=== PATIENT | female | born 1955 | race Caucasian/White ===

== ENCOUNTER 2017-07-04 03:06 | Inpatient (IN) | payer OTHER ==
[~2017-07-04] VITALS: Ht 165.1 cm; Wt 145.9 kg
[2017-07-04] MEDS ORDERED: HYDROmorphone 1 MG/ML, 1ML IVPush PRN (03:30)
[2017-07-04] MEDS ORDERED: ONDANSETRON 2MG/ML, 2ML IVPush ONE (03:30)
[2017-07-04] MEDS ORDERED: HYDROmorphone 1 MG/ML, 1ML ONE (03:33)
[2017-07-04] MEDS ORDERED: ONDANSETRON 2MG/ML, 2ML ONE (03:33)
[2017-07-04] MEDS ORDERED: PLEASE ENTER ALLERGIES MC SCH ×2 (04:00)
[2017-07-04] MEDS ORDERED: ATOR-2 PO (04:33)
[2017-07-04] MEDS ORDERED: MISO200T PO (04:35)
[2017-07-04] MEDS ORDERED: DOXE150C PO (04:36)
[2017-07-04] MEDS ORDERED: DOCU250C9 PO (04:39)
[2017-07-04] MEDS ORDERED: BISA-49 PO (04:40)
[2017-07-04] MEDS ORDERED: INSU100C SQ-INSULIN (04:41)
[2017-07-04] MEDS ORDERED: PREG200C PO (04:41)
[2017-07-04] MEDS ORDERED: INSU100V13 INJ (04:43)
[2017-07-04] MEDS ORDERED: GLIM2TAB PO (04:44)
[2017-07-04] MEDS ORDERED: ALBU18HF PO (04:45)
[2017-07-04] MEDS ORDERED: TRAM50TA2 PO (04:46)
[2017-07-04] MEDS ORDERED: HYDR-3245 PO (04:47)
[2017-07-04] MEDS ORDERED: OMEP-110 PO (04:47)
[2017-07-04] MEDS ORDERED: FAMO-79 PO (04:48)
[2017-07-04] MEDS ORDERED: TIZA4CAP2 PO (04:49)
[2017-07-04] MEDS ORDERED: MONT10TA6 PO (04:50)
[2017-07-04] MEDS ORDERED: AMLO2.5T2 PO (04:51)
[2017-07-04] MEDS ORDERED: HYDR200T PO (04:51)
[2017-07-04] MEDS ORDERED: BENA20TA2 PO (04:52)
[2017-07-04] MEDS ORDERED: MONT10TA9 PO (04:53)
[2017-07-04] MEDS ORDERED: HYDROmorphone 2 MG/ML, 1ML IVPush PRN (05:00)
[2017-07-04] MEDS ORDERED: ONDANSETRON 2MG/ML, 2ML IVPush PRN (05:00)
[2017-07-04] MEDS ORDERED: hydrALAzine 20 MG/ML, 1ML IVPush PRN (05:00)
[2017-07-04] MEDS ORDERED: ENOXAPARIN 40 MG/0.4 ML SQ SCH (05:00)
[2017-07-04] MEDS ORDERED: LORazepam 2 MG/ML, 1ML IVPush PRN (05:00)
[2017-07-04] MEDS ORDERED: MISOPROSTOL 100 MCG TABLET PO SCH (06:00)
[2017-07-04] MEDS ORDERED: ALBUTEROL/IPRATROPIUM 2.5MG/0.5MG, 3 ML NEB ONE (06:00)
[2017-07-04 06:30] VITALS: BP 147/78
[2017-07-04 07:23] VITALS: BP 122/71
[2017-07-04] MEDS: MONTELUKAST MC SCH ×3 (07:30→22:12)
[2017-07-04] MEDS: MISOPROSTOL MC SCH ×3 (07:30→22:12)
[2017-07-04] MEDS ORDERED: ALBUTEROL/IPRATROPIUM 2.5MG/0.5MG, 3 ML ONE (07:46)
[2017-07-04] MEDS: INSULIN ASPART 100 UNITS/ML, PEN SQ-INSULIN SCH ×4 (08:00→20:57)
[2017-07-04] MEDS ORDERED: IBUPROFEN 200 MG TABLET PO PRN (08:00)
[2017-07-04] MEDS ORDERED: BENAZEPRIL 20 MG TABLET PO SCH (09:00)
[2017-07-04] MEDS: ALBUTEROL/IPRATROPIUM 2.5MG/0.5MG, 3 ML NPPB SCH ×3 (09:00→19:34)
[2017-07-04] MEDS ORDERED: MONTELUKAST 10 MG TABLET PO SCH (09:00)
[2017-07-04] MEDS: TIZANIDINE 4MG TABLET PO SCH ×3 (09:43→20:51)
[2017-07-04] MEDS: BENAZEPRIL 20 MG TABLET PO SCH ×2 (09:43→20:52)
[2017-07-04] MEDS: GLIMEPIRIDE 4 MG TABLET PO SCH (09:44)
[2017-07-04] MEDS: METOCLOPRAMIDE 10MG TABLET PO SCH ×4 (09:45→20:54)
[2017-07-04] MEDS: FAMOTIDINE 20 MG TABLET PO SCH ×2 (09:46→20:54)
[2017-07-04] MEDS: OMEPRAZOLE 20 MG CAPSULE.DR PO SCH ×2 (09:46→20:50)
[2017-07-04] MEDS: AMLODIPINE 2.5 MG TABLET PO SCH (09:46)
[2017-07-04] MEDS ORDERED: DIPH25CA61 PO (09:51)
[2017-07-04] MEDS: HYDROXYCHLOROQUINE 200 MG TABLET PO SCH ×2 (11:43→20:52)
[2017-07-04] MEDS: PREGABALIN 200 MG CAPSULE PO SCH ×2 (11:43→20:50)
[2017-07-04] MEDS: MISOPROSTOL 200 MCG TABLET PO SCH ×3 (11:43→20:51)
[2017-07-04] MEDS: INSULIN DETEMIR 100 UNITS/ML, PEN SQ-INSULIN SCH ×2 (11:44→21:00)
[2017-07-04 13:03] VITALS: BP 129/75
[2017-07-04] MEDS ORDERED: ACETAMINOPHEN 500 MG TABLET PO PRN (14:00)
[2017-07-04] MEDS: GUAIFENESIN 100 MG/5 ML, 5ML UDC PO PRN ×2 (16:33→20:54)
[2017-07-04 19:15] VITALS: BP 116/72
[2017-07-04] MEDS: BISACODYL 5 MG EC TABLET PO SCH (20:52)
[2017-07-04] MEDS: ATORVASTATIN 20 MG TABLET PO SCH (20:52)
[2017-07-04] MEDS: DOXEPIN 25 MG CAPSULE PO SCH (21:55)
[2017-07-05 02:30] VITALS: BP 118/73
[2017-07-05] MEDS: MISOPROSTOL 200 MCG TABLET PO SCH ×4 (05:48→20:23)
[2017-07-05 05:54] LABS: HEMATOCRIT 31.6 % (34.6-47.8); HEMOGLOBIN 10.6 g/dL (11.7-16.4); WHITE BLOOD COUNT 2.6 x10^3/uL (3.4-10)
[2017-07-05 06:07] LABS: BLOOD UREA NITROGEN 27 mg/dL (7-18)
[2017-07-05] MEDS: INSULIN ASPART 100 UNITS/ML, PEN SQ-INSULIN SCH ×4 (07:00→20:23)
[2017-07-05] MEDS: METOCLOPRAMIDE 10MG TABLET PO SCH ×4 (07:00→20:13)
[2017-07-05 07:28] VITALS: BP 121/76
[2017-07-05] MEDS: MONTELUKAST MC SCH ×3 (07:30→21:45)
[2017-07-05] MEDS: MISOPROSTOL MC SCH ×3 (07:30→21:45)
[2017-07-05] MEDS ORDERED: GLUCAGON 1 MG IM PRN (08:00)
[2017-07-05] MEDS ORDERED: DEXTROSE 4 GM TAB.CHEW PO PRN (08:00)
[2017-07-05] MEDS ORDERED: DEXTROSE 50%, 50ML SYRINGE IVPush PRN (08:00)
[2017-07-05] MEDS: HEPARIN 5,000 UNITS/ML, 1ML SQ SCH ×2 (08:26→16:43)
[2017-07-05] MEDS: BISACODYL 5 MG EC TABLET PO SCH ×2 (08:26→20:23)
[2017-07-05] MEDS: GLIMEPIRIDE 4 MG TABLET PO SCH (08:26)
[2017-07-05] MEDS: SODIUM CHLORIDE FLUSH 10ML SYR IVF SCH ×2 (08:26→20:24)
[2017-07-05] MEDS: OMEPRAZOLE 20 MG CAPSULE.DR PO SCH ×2 (08:27→20:21)
[2017-07-05] MEDS: PREGABALIN 200 MG CAPSULE PO SCH ×2 (08:27→20:20)
[2017-07-05] MEDS: BENAZEPRIL 20 MG TABLET PO SCH ×2 (08:27→20:22)
[2017-07-05] MEDS: HYDROXYCHLOROQUINE 200 MG TABLET PO SCH ×2 (08:27→20:23)
[2017-07-05] MEDS: AMLODIPINE 2.5 MG TABLET PO SCH (08:27)
[2017-07-05] MEDS: TIZANIDINE 4MG TABLET PO SCH ×3 (08:28→20:22)
[2017-07-05] MEDS: INSULIN DETEMIR 100 UNITS/ML, PEN SQ-INSULIN SCH ×2 (08:28→20:43)
[2017-07-05] MEDS: MONTELUKAST 10 MG TABLET PO SCH (08:28)
[2017-07-05] MEDS: ALBUTEROL/IPRATROPIUM 2.5MG/0.5MG, 3 ML NPPB SCH ×3 (09:00→19:59)
[2017-07-05] MEDS ORDERED: AZTREONAM 1 GM in SODIUM CHLORIDE 0.9% 50 ML IV SCH (10:30)
[2017-07-05] MEDS: SODIUM CHLORIDE 0.9% 1,000 ML IV SCH ×2 (10:59→18:58)
[2017-07-05] MEDS ORDERED: INSULIN ASPART 100 UNITS/ML, PEN SQ-INSULIN SCH (11:00)
[2017-07-05 12:00] LABS: RAPID INFLUENZA A POSITIVE (Negative)
[2017-07-05 12:01] LABS: RAPID INFLUENZA B Negative (Negative)
[2017-07-05] MEDS: AZITHROMYCIN 500 MG in SODIUM CHLORIDE 0.9% 250 ML IV SCH (13:55)
[2017-07-05 14:32] VITALS: BP 124/76
[2017-07-05 18:33] VITALS: BP 118/76
[2017-07-05] MEDS: AZTREONAM IV SCH (18:55)
[2017-07-05] MEDS: DEXTROSE 5% IV SCH (18:55)
[2017-07-05] MEDS: OSELTAMIVIR 75 MG CAPSULE PO SCH (20:20)
[2017-07-05] MEDS: DOXEPIN 25 MG CAPSULE PO SCH (20:21)
[2017-07-05] MEDS: ATORVASTATIN 20 MG TABLET PO SCH (20:21)
[2017-07-05] MEDS: GUAIFENESIN ER 600 MG TABLET PO SCH (20:22)
[2017-07-06] MEDS: AZTREONAM IV SCH ×3 (02:37→20:11)
[2017-07-06] MEDS: DEXTROSE 5% IV SCH ×3 (02:37→20:11)
[2017-07-06 02:41] VITALS: BP 102/65
[2017-07-06] MEDS: HEPARIN 5,000 UNITS/ML, 1ML SQ SCH ×3 (05:13→20:16)
[2017-07-06] MEDS: MISOPROSTOL 200 MCG TABLET PO SCH ×4 (05:13→20:12)
[2017-07-06 05:52] LABS: HEMATOCRIT 32.2 % (34.6-47.8); HEMOGLOBIN 10.8 g/dL (11.7-16.4)
[2017-07-06 06:00] LABS: BLOOD UREA NITROGEN 28 mg/dL (7-18)
[2017-07-06 06:04] LABS: ASPARTATE AMINO TRANSFERASE 37 U/L (15-37)
[2017-07-06] MEDS: INSULIN ASPART 100 UNITS/ML, PEN SQ-INSULIN SCH ×4 (07:00→22:18)
[2017-07-06] MEDS: METOCLOPRAMIDE 10MG TABLET PO SCH ×4 (07:00→20:15)
[2017-07-06] MEDS: MONTELUKAST MC SCH ×3 (07:30→23:30)
[2017-07-06] MEDS: MISOPROSTOL MC SCH ×3 (07:30→23:30)
[2017-07-06 08:05] VITALS: BP 117/68
[2017-07-06] MEDS: SODIUM CHLORIDE FLUSH 10ML SYR IVF SCH ×2 (09:00→20:12)
[2017-07-06] MEDS: SODIUM CHLORIDE 0.9% 1,000 ML IV SCH ×2 (09:10→20:11)
[2017-07-06] MEDS: OMEPRAZOLE 20 MG CAPSULE.DR PO SCH ×2 (09:11→20:15)
[2017-07-06] MEDS: TIZANIDINE 4MG TABLET PO SCH ×3 (09:11→20:16)
[2017-07-06] MEDS: GUAIFENESIN ER 600 MG TABLET PO SCH ×2 (09:11→20:12)
[2017-07-06] MEDS: AMLODIPINE 2.5 MG TABLET PO SCH (09:11)
[2017-07-06] MEDS: BENAZEPRIL 20 MG TABLET PO SCH ×2 (09:11→20:14)
[2017-07-06] MEDS: HYDROXYCHLOROQUINE 200 MG TABLET PO SCH ×2 (09:11→20:15)
[2017-07-06] MEDS: OSELTAMIVIR 75 MG CAPSULE PO SCH ×2 (09:11→20:16)
[2017-07-06] MEDS: MONTELUKAST 10 MG TABLET PO SCH (09:11)
[2017-07-06] MEDS: PREGABALIN 200 MG CAPSULE PO SCH ×2 (09:11→20:15)
[2017-07-06] MEDS: INSULIN DETEMIR 100 UNITS/ML, PEN SQ-INSULIN SCH ×2 (09:13→22:19)
[2017-07-06] MEDS: ALBUTEROL/IPRATROPIUM 2.5MG/0.5MG, 3 ML NPPB SCH ×3 (10:06→21:00)
[2017-07-06] MEDS: AZITHROMYCIN 500 MG in SODIUM CHLORIDE 0.9% 250 ML IV SCH (12:39)
[2017-07-06 13:45] VITALS: BP 90/58
[2017-07-06 17:32] VITALS: BP 93/41
[2017-07-06] MEDS: ATORVASTATIN 20 MG TABLET PO SCH (20:12)
[2017-07-06] MEDS: DOXEPIN 25 MG CAPSULE PO SCH (20:16)
[2017-07-06 21:00] VITALS: BP 93/59
[2017-07-06] MEDS: CALCIUM CARBONATE 500 MG TAB.CHEW PO PRN (23:00)
[2017-07-07 02:31] VITALS: BP 97/51
[2017-07-07] MEDS: DEXTROSE 5% IV SCH ×3 (03:50→21:06)
[2017-07-07] MEDS: AZTREONAM IV SCH ×3 (03:50→21:06)
[2017-07-07 05:29] LABS: HEMATOCRIT 30.7 % (34.6-47.8); HEMOGLOBIN 10.3 g/dL (11.7-16.4); WHITE BLOOD COUNT 2.8 x10^3/uL (3.4-10)
[2017-07-07 05:36] LABS: BLOOD UREA NITROGEN 28 mg/dL (7-18)
[2017-07-07 06:08] LABS: DIFF TOTAL CELLS COUNTED 100 CELL DIFF
[2017-07-07 06:11] LABS: VERIFY COUNTS? YES
[2017-07-07 06:12] LABS: ANISOCYTOSIS 1+; MICROCYTOSIS 1+; OVALOCYTES 1+
[2017-07-07 06:13] LABS: POLYCHROMASIA 1+
[2017-07-07] MEDS: MISOPROSTOL 200 MCG TABLET PO SCH ×4 (06:15→21:14)
[2017-07-07] MEDS: HEPARIN 5,000 UNITS/ML, 1ML SQ SCH ×2 (06:15→17:39)
[2017-07-07] MEDS: METOCLOPRAMIDE 10MG TABLET PO SCH ×2 (07:00→11:00)
[2017-07-07] MEDS: MONTELUKAST MC SCH (07:30)
[2017-07-07] MEDS: MISOPROSTOL MC SCH (07:30)
[2017-07-07 08:35] VITALS: BP 118/70
[2017-07-07] MEDS: GUAIFENESIN ER 600 MG TABLET PO SCH ×2 (08:40→21:14)
[2017-07-07] MEDS: OSELTAMIVIR 75 MG CAPSULE PO SCH ×2 (08:40→21:14)
[2017-07-07] MEDS: BISACODYL 5 MG EC TABLET PO SCH (08:40)
[2017-07-07] MEDS: BENAZEPRIL 20 MG TABLET PO SCH ×2 (08:41→21:15)
[2017-07-07] MEDS: PREGABALIN 200 MG CAPSULE PO SCH ×2 (08:41→21:15)
[2017-07-07] MEDS: AMLODIPINE 2.5 MG TABLET PO SCH (08:41)
[2017-07-07] MEDS: OMEPRAZOLE 20 MG CAPSULE.DR PO SCH ×2 (08:41→21:15)
[2017-07-07] MEDS: HYDROXYCHLOROQUINE 200 MG TABLET PO SCH ×2 (08:42→21:14)
[2017-07-07] MEDS: MONTELUKAST 10 MG TABLET PO SCH (08:42)
[2017-07-07] MEDS: TIZANIDINE 4MG TABLET PO SCH ×3 (08:42→21:16)
[2017-07-07] MEDS: SODIUM CHLORIDE FLUSH 10ML SYR IVF SCH ×2 (08:43→21:06)
[2017-07-07] MEDS: INSULIN ASPART 100 UNITS/ML, PEN SQ-INSULIN SCH ×4 (08:43→21:04)
[2017-07-07] MEDS: AZITHROMYCIN 500 MG in SODIUM CHLORIDE 0.9% 250 ML IV SCH (08:55)
[2017-07-07] MEDS: ALBUTEROL/IPRATROPIUM 2.5MG/0.5MG, 3 ML NPPB SCH ×3 (09:31→20:42)
[2017-07-07] MEDS: KETOROLAC 30 MG/1 ML IVPush PRN (10:05)
[2017-07-07] MEDS: INSULIN DETEMIR 100 UNITS/ML, PEN SQ-INSULIN SCH ×2 (10:06→21:04)
[2017-07-07 14:24] VITALS: BP 101/65
[2017-07-07 18:35] VITALS: BP 167/88
[2017-07-07] MEDS: DOXEPIN 25 MG CAPSULE PO SCH (21:16)
[2017-07-07] MEDS: ATORVASTATIN 20 MG TABLET PO SCH (21:16)
[2017-07-08 00:44] VITALS: BP 152/75
[2017-07-08] MEDS: CALCIUM CARBONATE 500 MG TAB.CHEW PO PRN ×2 (00:53→23:27)
[2017-07-08] MEDS: HEPARIN 5,000 UNITS/ML, 1ML SQ SCH ×3 (00:53→17:56)
[2017-07-08] MEDS: DIPHENHYDRAMINE 50 MG CAPSULE PO PRN ×2 (00:53→23:28)
[2017-07-08] MEDS: KETOROLAC 30 MG/1 ML IVPush PRN (00:53)
[2017-07-08] MEDS: DEXTROSE 5% IV SCH ×3 (04:30→20:48)
[2017-07-08] MEDS: AZTREONAM IV SCH ×3 (04:30→20:48)
[2017-07-08 06:05] LABS: HEMATOCRIT 30.9 % (34.6-47.8); HEMOGLOBIN 10.4 g/dL (11.7-16.4); WHITE BLOOD COUNT 2.9 x10^3/uL (3.4-10)
[2017-07-08 06:13] LABS: BLOOD UREA NITROGEN 33 mg/dL (7-18)
[2017-07-08] MEDS: MISOPROSTOL 200 MCG TABLET PO SCH ×4 (06:21→20:44)
[2017-07-08] MEDS: INSULIN ASPART 100 UNITS/ML, PEN SQ-INSULIN SCH ×4 (07:00→20:42)
[2017-07-08] MEDS: BENAZEPRIL 20 MG TABLET PO SCH ×2 (07:58→20:43)
[2017-07-08] MEDS: PREGABALIN 200 MG CAPSULE PO SCH ×2 (07:58→20:44)
[2017-07-08] MEDS: INSULIN DETEMIR 100 UNITS/ML, PEN SQ-INSULIN SCH ×2 (07:58→20:40)
[2017-07-08] MEDS: AMLODIPINE 2.5 MG TABLET PO SCH (07:58)
[2017-07-08] MEDS: GUAIFENESIN ER 600 MG TABLET PO SCH ×2 (07:58→20:43)
[2017-07-08] MEDS: TIZANIDINE 4MG TABLET PO SCH ×3 (07:59→20:44)
[2017-07-08] MEDS: OSELTAMIVIR 75 MG CAPSULE PO SCH ×2 (07:59→20:44)
[2017-07-08] MEDS: MONTELUKAST 10 MG TABLET PO SCH (07:59)
[2017-07-08] MEDS: OMEPRAZOLE 20 MG CAPSULE.DR PO SCH ×2 (07:59→20:43)
[2017-07-08] MEDS: BISACODYL 5 MG EC TABLET PO SCH (07:59)
[2017-07-08] MEDS: HYDROXYCHLOROQUINE 200 MG TABLET PO SCH ×2 (07:59→20:44)
[2017-07-08] MEDS: SODIUM CHLORIDE FLUSH 10ML SYR IVF SCH ×2 (08:00→20:26)
[2017-07-08 08:51] VITALS: BP 120/70
[2017-07-08] MEDS ORDERED: GUAI600T31 PO (09:58)
[2017-07-08] MEDS ORDERED: PRED20TA PO (09:58)
[2017-07-08] MEDS ORDERED: AZIT250T89 PO (09:58)
[2017-07-08] MEDS ORDERED: OSEL75CA PO (09:58)
[2017-07-08] MEDS ORDERED: INSU100I18 SQ-INSULIN (09:58)
[2017-07-08] MEDS: ALBUTEROL/IPRATROPIUM 2.5MG/0.5MG, 3 ML NPPB SCH ×3 (11:25→19:03)
[2017-07-08] MEDS: AZITHROMYCIN 500 MG in SODIUM CHLORIDE 0.9% 250 ML IV SCH (15:24)
[2017-07-08 19:48] VITALS: BP 133/75
[2017-07-08] MEDS: DOXEPIN 25 MG CAPSULE PO SCH (20:43)
[2017-07-08] MEDS: ATORVASTATIN 20 MG TABLET PO SCH (20:43)
[2017-07-09] MEDS: HEPARIN 5,000 UNITS/ML, 1ML SQ SCH ×3 (02:53→17:13)
[2017-07-09 02:56] VITALS: BP 132/82
[2017-07-09] MEDS: DEXTROSE 5% IV SCH ×3 (06:00→20:19)
[2017-07-09] MEDS: AZTREONAM IV SCH ×3 (06:00→20:19)
[2017-07-09] MEDS: MISOPROSTOL 200 MCG TABLET PO SCH ×4 (06:04→20:18)
[2017-07-09] MEDS: INSULIN ASPART 100 UNITS/ML, PEN SQ-INSULIN SCH ×4 (07:00→22:34)
[2017-07-09] MEDS: ALBUTEROL/IPRATROPIUM 2.5MG/0.5MG, 3 ML NPPB SCH ×3 (07:20→19:12)
[2017-07-09 07:40] LABS: HEMATOCRIT 31.6 % (34.6-47.8); HEMOGLOBIN 10.5 g/dL (11.7-16.4); WHITE BLOOD COUNT 4.5 x10^3/uL (3.4-10)
[2017-07-09 07:46] LABS: BLOOD UREA NITROGEN 29 mg/dL (7-18)
[2017-07-09 07:47] VITALS: BP 142/80
[2017-07-09] MEDS: BENAZEPRIL 20 MG TABLET PO SCH ×2 (08:06→20:17)
[2017-07-09] MEDS: AMLODIPINE 2.5 MG TABLET PO SCH (08:07)
[2017-07-09] MEDS: OMEPRAZOLE 20 MG CAPSULE.DR PO SCH ×2 (08:07→20:17)
[2017-07-09] MEDS: MONTELUKAST 10 MG TABLET PO SCH (08:08)
[2017-07-09] MEDS: TIZANIDINE 4MG TABLET PO SCH ×3 (08:09→20:18)
[2017-07-09] MEDS: GUAIFENESIN ER 600 MG TABLET PO SCH ×2 (08:10→20:17)
[2017-07-09] MEDS: PREGABALIN 200 MG CAPSULE PO SCH ×2 (08:12→20:18)
[2017-07-09] MEDS: OSELTAMIVIR 75 MG CAPSULE PO SCH ×2 (08:12→20:18)
[2017-07-09] MEDS: INSULIN DETEMIR 100 UNITS/ML, PEN SQ-INSULIN SCH ×2 (08:13→22:35)
[2017-07-09] MEDS: HYDROXYCHLOROQUINE 200 MG TABLET PO SCH ×2 (08:13→20:18)
[2017-07-09] MEDS: SODIUM CHLORIDE FLUSH 10ML SYR IVF SCH ×2 (08:14→20:19)
[2017-07-09] MEDS: BISACODYL 5 MG EC TABLET PO SCH ×2 (08:15→22:33)
[2017-07-09 13:02] VITALS: BP 146/83
[2017-07-09] MEDS: AZITHROMYCIN 500 MG in SODIUM CHLORIDE 0.9% 250 ML IV SCH (14:26)
[2017-07-09 20:13] VITALS: BP 131/75
[2017-07-09] MEDS: ATORVASTATIN 20 MG TABLET PO SCH (20:17)
[2017-07-09] MEDS: DOXEPIN 25 MG CAPSULE PO SCH (20:18)
[2017-07-09] MEDS: CALCIUM CARBONATE 500 MG TAB.CHEW PO PRN (22:33)
[2017-07-09] MEDS: DIPHENHYDRAMINE 50 MG CAPSULE PO PRN (22:33)
[2017-07-10 01:24] VITALS: BP 160/69
[2017-07-10] MEDS: HEPARIN 5,000 UNITS/ML, 1ML SQ SCH ×3 (01:29→17:04)
[2017-07-10] MEDS: DEXTROSE 5% IV SCH ×3 (04:53→18:00)
[2017-07-10] MEDS: MISOPROSTOL 200 MCG TABLET PO SCH ×4 (04:53→21:19)
[2017-07-10] MEDS: AZTREONAM IV SCH ×3 (04:53→18:00)
[2017-07-10] MEDS: INSULIN ASPART 100 UNITS/ML, PEN SQ-INSULIN SCH ×4 (07:00→21:18)
[2017-07-10 07:53] VITALS: BP 145/73
[2017-07-10] MEDS: INSULIN DETEMIR 100 UNITS/ML, PEN SQ-INSULIN SCH ×2 (08:50→21:17)
[2017-07-10] MEDS: GUAIFENESIN ER 600 MG TABLET PO SCH ×2 (08:51→21:19)
[2017-07-10] MEDS: MONTELUKAST 10 MG TABLET PO SCH (08:52)
[2017-07-10] MEDS: AMLODIPINE 2.5 MG TABLET PO SCH (08:52)
[2017-07-10] MEDS: OMEPRAZOLE 20 MG CAPSULE.DR PO SCH ×2 (08:52→21:18)
[2017-07-10] MEDS: BENAZEPRIL 20 MG TABLET PO SCH ×2 (08:52→21:19)
[2017-07-10] MEDS: TIZANIDINE 4MG TABLET PO SCH ×3 (08:52→21:19)
[2017-07-10] MEDS: OSELTAMIVIR 75 MG CAPSULE PO SCH (08:52)
[2017-07-10] MEDS: HYDROXYCHLOROQUINE 200 MG TABLET PO SCH ×2 (08:52→21:19)
[2017-07-10] MEDS: SODIUM CHLORIDE FLUSH 10ML SYR IVF SCH ×2 (08:53→21:17)
[2017-07-10] MEDS: ALBUTEROL/IPRATROPIUM 2.5MG/0.5MG, 3 ML NPPB SCH ×3 (09:35→19:50)
[2017-07-10] MEDS: LIDODERM 5% PATCH TD SCH (11:30)
[2017-07-10] MEDS ORDERED: ALUMINUM/MAG/SIMETHICONE 30 ML UDC PO PRN (11:30)
[2017-07-10] MEDS: PREGABALIN 200 MG CAPSULE PO SCH ×2 (11:31→21:18)
[2017-07-10] MEDS: KETOROLAC 30 MG/1 ML IVPush PRN (11:32)
[2017-07-10 14:00] VITALS: BP 140/80
[2017-07-10 19:47] VITALS: BP 169/80
[2017-07-10] MEDS ORDERED: DOCUSATE 100 MG CAPSULE PO SCH (21:00)
[2017-07-10] MEDS ORDERED: DOCUSATE 50 MG/5 ML, 10ML UDC PO SCH (21:00)
[2017-07-10] MEDS: DOXEPIN 25 MG CAPSULE PO SCH (21:18)
[2017-07-10] MEDS: ATORVASTATIN 20 MG TABLET PO SCH (21:19)
[2017-07-10] MEDS: CALCIUM CARBONATE 500 MG TAB.CHEW PO PRN (22:58)
[2017-07-10] MEDS: DIPHENHYDRAMINE 50 MG CAPSULE PO PRN (22:59)
[2017-07-10] MEDS ORDERED: AZITHROMYCIN 500 MG in SODIUM CHLORIDE 0.9% 250 ML IV SCH (23:00)
[2017-07-11 01:50] VITALS: BP 155/73
[2017-07-11] MEDS: HEPARIN 5,000 UNITS/ML, 1ML SQ SCH ×3 (01:56→17:28)
[2017-07-11] MEDS: DEXTROSE 5% IV SCH ×3 (01:56→18:21)
[2017-07-11] MEDS: AZTREONAM IV SCH ×3 (01:56→18:21)
[2017-07-11] MEDS: MISOPROSTOL 200 MCG TABLET PO SCH ×3 (05:31→17:28)
[2017-07-11] MEDS: INSULIN ASPART 100 UNITS/ML, PEN SQ-INSULIN SCH ×3 (07:00→17:27)
[2017-07-11 07:55] VITALS: BP_SYST 165; BP_SYST 173; BP_DIAS 84; BP_DIAS 87
[2017-07-11] MEDS: BISACODYL 5 MG EC TABLET PO SCH (09:00)
[2017-07-11] MEDS: ALBUTEROL/IPRATROPIUM 2.5MG/0.5MG, 3 ML NPPB SCH ×3 (09:15→17:20)
[2017-07-11] MEDS: GUAIFENESIN ER 600 MG TABLET PO SCH (10:25)
[2017-07-11] MEDS: AMLODIPINE 2.5 MG TABLET PO SCH (10:26)
[2017-07-11] MEDS: PREGABALIN 200 MG CAPSULE PO SCH (10:26)
[2017-07-11] MEDS: BENAZEPRIL 20 MG TABLET PO SCH (10:26)
[2017-07-11] MEDS: TIZANIDINE 4MG TABLET PO SCH ×2 (10:26→14:22)
[2017-07-11] MEDS: OMEPRAZOLE 20 MG CAPSULE.DR PO SCH (10:26)
[2017-07-11] MEDS: HYDROXYCHLOROQUINE 200 MG TABLET PO SCH (10:26)
[2017-07-11] MEDS: SODIUM CHLORIDE FLUSH 10ML SYR IVF SCH (10:26)
[2017-07-11] MEDS: MONTELUKAST 10 MG TABLET PO SCH (10:27)
[2017-07-11] MEDS: INSULIN DETEMIR 100 UNITS/ML, PEN SQ-INSULIN SCH (10:35)
[2017-07-11] MEDS: LIDODERM 5% PATCH TD SCH (11:30)
[2017-07-11 14:00] VITALS: BP 126/75
[2017-07-11] MEDS ORDERED: AMLO2.5T2 PO (14:16)
[2017-07-11] MEDS ORDERED: PRED20TA PO (14:16)
[2017-07-11] MEDS ORDERED: AMLODIPINE 2.5 MG TABLET PO SCH (21:00)
== END 2017-07-11 19:23 | disposition home or self-care (01) | DRG 682 ==
LOC: ED 03:13 → EDIP 05:00 → 3NE 07:07
PROVIDERS: ADMIT Family Medicine; ATTEND Hospitalist
PROC: 5A09357 Assistance with Respiratory Ventilation, Less than 24 Consecutive Hours, Continuous Positive Airway Pressure (ICD-10-PCS; 2017-07-06)
PROC: 5A09357 Assistance with Respiratory Ventilation, Less than 24 Consecutive Hours, Continuous Positive Airway Pressure (ICD-10-PCS; 2017-07-08)
PROC: 02HV33Z Insertion of Infusion Device into Superior Vena Cava, Percutaneous Approach (ICD-10-PCS; principal; 2017-07-09)
PROC: B5181ZA Fluoroscopy of Superior Vena Cava using Low Osmolar Contrast, Guidance (ICD-10-PCS; 2017-07-09)
PROC: B548ZZA Ultrasonography of Superior Vena Cava, Guidance (ICD-10-PCS; 2017-07-09)
DX: N17.9 Acute kidney failure, unspecified (principal); J10.00 Influenza due to other identified influenza virus with unspecified type of pneumonia; E11.22 Type 2 diabetes mellitus with diabetic chronic kidney disease; K31.84 Gastroparesis; E11.43 Type 2 diabetes mellitus with diabetic autonomic (poly)neuropathy; E66.01 Morbid (severe) obesity due to excess calories; E87.1 Hypo-osmolality and hyponatremia; N39.0 Urinary tract infection, site not specified; Z68.43 Body mass index [BMI] 50.0-59.9, adult; N18.3 Chronic kidney disease, stage 3 (moderate); E88.81 Metabolic syndrome and other insulin resistance; W06.XXXA Fall from bed, initial encounter; B96.20 Unspecified Escherichia coli [E. coli] as the cause of diseases classified elsewhere; M54.9 Dorsalgia, unspecified; R26.2 Difficulty in walking, not elsewhere classified; G47.33 Obstructive sleep apnea (adult) (pediatric); G89.4 Chronic pain syndrome; I12.9 Hypertensive chronic kidney disease with stage 1 through stage 4 chronic kidney disease, or unspecified chronic kidney disease; J45.909 Unspecified asthma, uncomplicated; K21.9 Gastro-esophageal reflux disease without esophagitis; M06.9 Rheumatoid arthritis, unspecified; M79.7 Fibromyalgia; R32 Unspecified urinary incontinence; Z79.4 Long term (current) use of insulin; Z82.49 Family history of ischemic heart disease and other diseases of the circulatory system; Z83.3 Family history of diabetes mellitus; Z87.891 Personal history of nicotine dependence; Z88.1 Allergy status to other antibiotic agents
CPT/HCPCS: 36415; 36569; 71010; 76937; 77001; 80048; 80053; 81001; 82040; 82565; 82962; 83036; 83735; 84443; 85025; 85651; 87040; 87077; 87086; 87186; 87205; 87400; 94640; 94660; 96374; J0456; J1170; J1644; J1650; J1815; J1885; J2405; J7620; C1751; J7030; J7050; J7512

== ENCOUNTER 2017-12-30 14:10 | Emergency (ER) | payer MEDICARE, OTHER ==
[~2017-12-30] VITALS: Ht 167.6 cm; Wt 144.5 kg
[~2017-12-30 14:10] MED LIST: ALBU18HF PO; AMLO2.5T2 PO; ATOR-2 PO; AZIT250T89 PO; BENA20TA2 PO; BISA-49 PO; DIPH25CA61 PO; DOCU250C9 PO; DOXE150C PO; FAMO-79 PO; GLIM2TAB PO; GUAI600T31 PO; HYDR-3245 PO; HYDR200T72 PO; INSU100C SQ-INSULIN; INSU100I18 SQ-INSULIN; INSU100V13 INJ; MISO200T PO; MONT10TA6 PO; MONT10TA9 PO; OMEP-110 PO; OSEL75CA PO; PRED20TA PO; PREG200C PO; TIZA4CAP2 PO; TRAM50TA2 PO
[2017-12-30 15:30] LABS: BASOPHILS # (AUTO) 0.01 x10^3/uL (0-0.1); BASOPHILS % (AUTO) 0 % (0-1); EOSINOPHILS # (AUTO) 0.01 x10^3/uL (0-0.4); EOSINOPHILS % (AUTO) 0 % (1-7); LYMPHOCYTES % (AUTO) 21 % (22-44); MD NO; MEAN CORPUSCULAR HEMOGLOBIN 25.9 pg (27.0-34.8); MEAN CORPUSCULAR HGB CONC 32.8 g/dL (32.4-35.8); MEAN CORPUSCULAR VOLUME 79.1 fL (80-100); MEAN PLATELET VOLUME 8.8 fL (7.4-10.4); MONOCYTES # (AUTO) 0.45 x10^3/uL (0.2-0.8); MONOCYTES % (AUTO) 6 % (2-9); NEUTROPHILS # (AUTO) 5.58 x10^3/uL (1.8-6.8); NEUTROPHILS % (AUTO) 73 % (42-75); PLATELET COUNT 267 x10^3/uL (130-400); RED BLOOD COUNT 4.75 x10^6/uL (3.82-5.3); RED CELL DISTRIBUTION WIDTH 16.4 % (9.6-15.2)
[2017-12-30 15:34] LABS: ALBUMIN 3.9 g/dL (3.4-5.0); ANION GAP 11 mmol/L (5-15); CALCIUM 9.9 mg/dL (8.5-10.1); CHLORIDE 104 mmol/L (98-107); CREATININE 1.51 mg/dL (0.55-1.02)
[2017-12-30 16:30] LABS: CULTURE INDICATED? YES; MICROSCOPIC INDICATED
[2017-12-30 17:33] VITALS: BP 128/74
== END 2017-12-30 17:35 | disposition home or self-care (01) ==
LOC: ED 17:00
DX: Z00.00 Encounter for general adult medical examination without abnormal findings (principal); E11.22 Type 2 diabetes mellitus with diabetic chronic kidney disease; I12.0 Hypertensive chronic kidney disease with stage 5 chronic kidney disease or end stage renal disease; N18.6 End stage renal disease; N17.9 Acute kidney failure, unspecified; M06.9 Rheumatoid arthritis, unspecified; Z79.4 Long term (current) use of insulin; Z88.0 Allergy status to penicillin; Z88.1 Allergy status to other antibiotic agents
CPT/HCPCS: 36415; 80048; 81001; 82040; 82962; 83605; 85025; 87040; 87086; 87147; 99284

== ENCOUNTER 2019-02-19 06:35 | Outpatient (CLI) | payer MEDICARE ==
[~2019-02-19] VITALS: Ht 165.1 cm; Wt 141.5 kg
[2019-02-19 07:50] VITALS: BP 141/85
== END 2019-02-19 23:59 | disposition home or self-care (01) ==
LOC: INFUSION 06:35
PROVIDERS: ATTEND Internal Medicine
DX: D50.8 Other iron deficiency anemias (principal)
CPT/HCPCS: 36415; 36591; 85014; 85018; 96365; 96366; 96367; J1750; J7050